=== PATIENT | male | born 1980 | race Caucasian/White ===

== ENCOUNTER → 2016-10-06 | Day surgery (SDC) | payer OTHER ==
[~2016-10-06] VITALS: Ht 185.4 cm; Wt 81.6 kg
[~2016-10-06] MED LIST: BUPIVACAINE HCL 0.5% 30 ML VIAL As Ordered ONE; LIDOCAINE 1% SDV INJ 30 ML VIAL As Ordered ONE; LR 1,000 ML IV SCH; MIDAZOLAM INJ 2 MG/2 ML VIAL (J2250) As Ordered ONE; ONDANSETRON 4MG/2ML VIAL (J2405) As Ordered ONE; PROPOFOL 200 MG/20 ML VIAL As Ordered ONE; ceFAZolin 2 GM/D5W 50 ML IV BAG (J0690) As Ordered ONE; dexameTHASONE 4 MG/ML 1ML VIAL (J1100) As Ordered ONE; fentaNYL 100 MCG/2 ML INJECTION (J3010) As Ordered ONE; thyroid supplement OR
--- NOTE | 2016-10-06 12:04 | REP ---
Clinical: Status post open reduction and fixation. Technique: Intraoperative fluoroscopic imaging. Findings: Four intraoperative fluoroscopic images demonstrate the patient to be status post open reduction and fixation involving the base of the second metatarsal bone. Satisfactory alignment is appreciated. Total fluoroscopic time 10.3 seconds. Impression: Status post open reduction and fixation at the second metatarsal bone. Signed by Trey Ahumada MD 10/06/2016 11:55 A
[2016-10-06 12:40] VITALS: BP 128/81
--- NOTE | 2016-10-06 18:45 | RO ---
DATE OF PROCEDURE: 10/06/2015 PREOPERATIVE DIAGNOSIS: Right foot second metatarsal fracture, nonunion. POSTOPERATIVE DIAGNOSIS: Right foot second metatarsal fracture, nonunion. OPERATIVE PROCEDURE: Right foot nonunion fracture repair. SURGEON: Morales Gallardo DPM FIELD REPRESENTATIVES DIRECTOR: None. ANESTHESIA: Monitored anesthesia care with preoperative injection of 20 mL of a 1:1 mixture of 1% lidocaine plain and 0.50% Marcaine plain. ESTIMATED BLOOD LOSS: 5 mL. MATERIALS: Geelbe bone putty, 0.5 mL, an Arthrex three hole compression plate with size 3.0 locking screws times four and 3.0 nonlocking screw times one. #4-0 Vicryl and #4-0 nylon. INJECTABLES: None. COMPLICATIONS: None. CONDITION: Stable. Doc Roque is a 36-year-old male who presents to the [facility] with a nonunion fracture to his second metatarsal base. He had been treated conservatively with non-weightbearing off loading as well as bone growth stimulator without resolution of pain and without consolidation at fracture site. A decision was made to bring him to operating room for fracture reduction. The patient side and site were identified and marked in preoperative holding area. Consent was reviewed and obtained. All risks, complications and alternatives to the procedure were explained to the patient in detail and all questions were answered. DESCRIPTION OF OPERATION: The patient was brought the operating room and placed on operating room table in supine position. Monitored anesthesia care was delivered by the anesthesia team. A preoperative injection of 20 mL of 1:1 mixture of 1% lidocaine plain and 0.50% Marcaine plain were injected to the right foot. The patient received Ancef preoperatively. The right foot was prepped and draped in normal sterile fashion. A tourniquet was applied to the ankle and inflated to 150 mmHg. A dorsal curvilinear incision was drawn over the second metatarsal base. This was carried through with #15 blade. Dissection was carefully carried with tenotomy scissors until the second metatarsal base was accessed. Care was taken not to disrupt the deep or superficial peroneal nerves or the dorsalis pedis artery. The overlying periosteum was reflected with freer and there was noted to be overlying bone callous to the fracture site. This was removed with osteotome. The fracture site was identified and reopened using osteotome. The fracture edges were freshened using osteotome and curette. The site was irrigated with normal saline. Following this approximately 3.3 mL of Geelbe bone putty was inserted to the fracture site. Next, the Arthrex three hole compression plate was applied. Locking proximally and then using a nonlocking screw in the compression slot. Good compression was noted across the fracture site. The remaining two distal holes were filled with locking screws. Each size screw was 3.0. Position of fracture was verified on C-Arm. The hardware was noted to be in good position on C-Arm images. The site was again irrigated with normal saline. Subcutaneous closure was performed with #4-0 Vicryl and skin with #4-0 nylon. Sterile dressings were applied. Tourniquet was deflated. The patient was brought to PACU, vital signs stable, neurovascular status intact. He will be non-weight bearing to the right foot. He will followup in office in two days.
== END ==
LOC: M SDC 08:19
PROVIDERS: ATTEND Podiatrist Foot & Ankle Surgery
DX: S92.321K Displaced fracture of second metatarsal bone, right foot, subsequent encounter for fracture with nonunion (principal); X58.XXXS Exposure to other specified factors, sequela; Y92.89 Other specified places as the place of occurrence of the external cause; M77.9 Enthesopathy, unspecified; B35.1 Tinea unguium; E03.9 Hypothyroidism, unspecified; K21.9 Gastro-esophageal reflux disease without esophagitis; G47.9 Sleep disorder, unspecified; Z79.899 Other long term (current) drug therapy; F17.210 Nicotine dependence, cigarettes, uncomplicated; Z91.09 Other allergy status, other than to drugs and biological substances
CPT/HCPCS: 28322; 73630; 97116; C1763; C1776; J0690; J2250; J2405; J3010

== ENCOUNTER 2017-03-19 14:36 | Emergency (ER) | payer OTHER ==
[~2017-03-19] VITALS: Ht 185.4 cm; Wt 84.1 kg
[~2017-03-19 14:36] MED LIST changes: -BUPIVACAINE HCL 0.5% 30 ML VIAL As Ordered ONE; -LIDOCAINE 1% SDV INJ 30 ML VIAL As Ordered ONE; -LR 1,000 ML IV SCH; -MIDAZOLAM INJ 2 MG/2 ML VIAL (J2250) As Ordered ONE; -ONDANSETRON 4MG/2ML VIAL (J2405) As Ordered ONE; -PROPOFOL 200 MG/20 ML VIAL As Ordered ONE; -ceFAZolin 2 GM/D5W 50 ML IV BAG (J0690) As Ordered ONE; -dexameTHASONE 4 MG/ML 1ML VIAL (J1100) As Ordered ONE; -fentaNYL 100 MCG/2 ML INJECTION (J3010) As Ordered ONE
--- NOTE | 2017-03-19 16:30 | REP ---
CHEST, PA, SINGLE VIEW: There is no evidence of acute infiltrate. No pleural effusion is seen. The heart is normal in size. The mediastinal silhouette is unremarkable. The visualized osseous structures are intact. IMPRESSION: No acute pulmonary disease. Signed by Rod Chilel MD 03/19/2017 05:16 P
--- NOTE | 2017-03-19 16:30 | REP ---
REASON: Stroke like symptoms. PRIORS: None. TECHNIQUE: 4.5 mm contiguous transaxial sections were obtained from the skull base to the cerebral convexities with thin cuts through the posterior fossa without the administration of intravenous contrast. FINDINGS: The ventricles and sulci are consistent with the patient's age. There are no extra-axial fluid collections. There is no mass effect. The deep cerebral white matter is consistent with the patient's age. The orbital and petrous structures, cerebellopontine angles, and posterior fossa are unremarkable. The sella turcica, cavernous, and paracavernous structures are essentially unremarkable. The visualized portions of the paranasal sinuses and mastoid air cells are clear. Images of the skull base show no gross abnormality. IMPRESSION: Essentially unremarkable CT examination of the brain. Signed by Tremaine Gonzales DO 03/19/2017 04:37 P
[2017-03-19 16:51] LABS: BASO % 0.6 % (0.0-1.0); EOS # 0.2 K/mm3 (0.0-0.50); LARGE UNSTAINED CELL # 0.1 K/mm3 (0.0-0.4); LARGE UNSTAINED CELL % 2.1 % (0.0-4.0); LYMPH # 1.6 K/mm3 (1.5-4.5); LYMPH % 27.9 % (24.0-44.0); MEAN CORPUSCULAR HEMOGLOBIN 31.4 pg (27.0-33.0); MEAN CORPUSCULAR HGB CONC 34.9 g/dl (32.0-36.5); MEAN CORPUSCULAR VOLUME 89.8 fl (80.0-96.0); MONO # 0.3 K/mm3 (0.0-0.8); MONO % 5.4 % (0.0-5.0); NEUTROPHILS # 3.3 K/mm3 (1.8-7.7); PLATELET COUNT, AUTOMATED 155 k/mm3 (150-450); RED CELL DISTRIBUTION WIDTH 12.9 % (11.5-14.5); WHITE BLOOD COUNT 5.4 K/mm3 (4.0-10.0)
[2017-03-19 16:55] LABS: INR 0.97
[2017-03-19 17:17] LABS: ANION GAP 4 MEQ/L (8-16); BLOOD UREA NITROGEN 17 MG/DL (7-18); CALCIUM LEVEL 9.2 MG/DL (8.5-10.1); CARBON DIOXIDE LEVEL 33 MEQ/L (21-32); CHLORIDE LEVEL 104 MEQ/L (98-107); CREATININE FOR GFR 1.27 MG/DL (0.70-1.30); GLOMERULAR FILTRATION RATE > 60.0 (>60); GLUCOSE, FASTING 93 MG/DL (70-105); POTASSIUM SERUM 4.2 MEQ/L (3.5-5.1); SODIUM LEVEL 141 MEQ/L (136-145)
--- NOTE | 2017-03-19 18:40 | REPUSA ---
CLINICAL HISTORY: Numbness. TECHNIQUE: MRI of the brain was performed without administration of intravenous contrast material. T1 spine echo, T2 fast spin echo, DWI and FLAIR sequences were obtained in sagittal, axial and coronal planes. FINDINGS: The sella and parasellar regions are unremarkable in appearance. The corpus callosum and cerebellar t onsils are of normal configuration and position. There are no intra or extra-axial collections. There is no mass effect or midline shift. There is no evidence of hematoma formation. There is no hydrocep halus. There is no restricted diffusion noted. The brain stem shows no mass effects, infarcts or hemorrhage. There are no cerebellopontine tumors. T he acoustic nerves are symmetrical. No cerebellar intra-axial pathology delineated. The fourth ventri derrek and aqueduct are normal. No abnormalities of the optic nerves are identified. There is no evidenc e of atrophic or degenerative changes. No dural or subdural masses or collections are detected. The visualized arterial structures demonstrate normal appearing flow voids. The VII and VIII nerve bu ndles are visualized and are unremarkable in appearance. There are no suspicious signal abnormalities within the infra or supratentorial space. Mucosal thickening is seen involving bilateral ethmoid and maxillary sinuses compatible with chronic sinusitis. 2 x 1.3 cm mucoid retention cyst is noted at the right maxillary sinus floor. IMPRESSION: Chronic ethmoid and maxillary sinusitis, otherwise normal MRI of the brain. Thank you for your kind referral of this patient.
[2017-03-19 18:41] VITALS: BP 134/83
[2017-03-19 19:05] LABS: FREE T4 0.76 NG/DL (0.76-1.46)
--- NOTE | 2017-03-20 06:04 | ECGEPIP ---
Stationary ECG Study [facility] - ED Test Date: 2017-03-19 Pat Name: BRIAN HANSON Department: Room: - Gender: M [employer] Operator: NICHOLAS : 1980 Requested By: Corinna Jackson Order Number: [id number] Reading MD: Jose Daniel Camarena Measurements Intervals [place] Rate: 56 P: 25 OK: 143 QRS: 62 QRSD: 99 T: 38 QT: 404 QTc: 392 Interpretive Statements SINUS BRADYCARDIA ST ELEVATION, PROBABLY EARLY REPOLARIZATION NO PRIORS Electronically Signed On 03-20-2017 6:04:30 EDT by Jose Daniel Camarena
== END 2017-03-19 18:54 | disposition home or self-care (01) ==
LOC: M ED 16:11
DX: R20.2 Paresthesia of skin (principal); J32.2 Chronic ethmoidal sinusitis; J32.0 Chronic maxillary sinusitis; G43.909 Migraine, unspecified, not intractable, without status migrainosus; Z87.820 Personal history of traumatic brain injury